=== PATIENT | female | born 1940 | race Caucasian/White ===

== ENCOUNTER → 2018-05-05 | Outpatient (CLI) | payer OTHER ==
--- NOTE | 2018-05-05 11:14 | NUR ---
PATIENT WAS ADMITTED TO PRE-OP/ RECOVERY IN STABLE CONDITION VIA MEDI-TUBE ROLLER TRANSPORT RR 16 BPM, 97% ON 2L O2, BP 129/72. SHE IS CHRONICALLY ON 2L O2/ NL. SHE IS A/O X3 WITH SON Jignesh AT BESIDE. RADIOLOGY AT BEDSIDE AND INSTRUCTED PATIENT AND SON ON DRINKING OF CONTRAST. PATIENT IS CURRENTLY DRINKING CONTRAST WITHOUT DIFFICULTY. PLAN FOR CT OF ABDOMEN IN APPROXIMATELY 1 HOUR. PATIENT WILL RETURN [facility]OMISE VIA MEDI-TUBE ROLLER POST CT ABDOMEN.
--- NOTE | 2018-05-05 12:28 | NUR ---
PATIENT BACK FROM CT IN STABLE CONDITION. BP 129/59, HR 80 BPM, O2 94%, RR 21. MEDI-MANAGER PHOTO TRANSPORTED PT BACK TO [facility].
== END ==
LOC: CAT 10:32
DX: R10.9 Unspecified abdominal pain (principal); J90 Pleural effusion, not elsewhere classified; I25.10 Atherosclerotic heart disease of native coronary artery without angina pectoris; I70.0 Atherosclerosis of aorta; M51.35 Other intervertebral disc degeneration, thoracolumbar region; Z90.710 Acquired absence of both cervix and uterus